=== PATIENT | female | born 1945 | race Caucasian/White ===

== ENCOUNTER → 2017-03-21 | Outpatient (CLI) | payer OTHER, MEDICARE ==
[2017-03-21 17:29] LABS: ALT (SGPT) 19 U/L (14-59); AST (SGOT) 14 U/L (15-37); CREATININE 0.9 mg/dL (0.6-1.0); GFR 61.5
[2017-03-21 17:29] LABS: BLOOD UREA NITROGEN 13 mg/dL (7-20)
[2017-03-21 17:37] LABS: FREE T4 0.77 ng/dL (0.76-1.46)
[2017-03-21 17:37] LABS: THYROID STIM HORMONE (TSH) 1.805 uIU/mL (0.358-3.74)
[2017-03-21 20:53] LABS: VITAMIN-B12 483 pg/mL (247-911)
== END | disposition home or self-care (01) ==
LOC: LAB 16:50
DX: G25.0 Essential tremor (principal)
CPT/HCPCS: 36415; 82306; 82565; 82607; 84439; 84443; 84450; 84460; 84520